=== PATIENT | female | born 1960 | race Two or more races ===

== ENCOUNTER 2023-09-21 10:42 | Inpatient (IN) | payer MEDICAID, OTHER ==
[~2023-09-21] VITALS: Ht 144.8 cm; Wt 58.0 kg
[2023-09-21] MEDS: SODIUM CHLORIDE 0.9% 500 ML IVB ONE (11:27)
[2023-09-21] MEDS: ONDANSETRON HCL 4 MG/2 ML VIAL IV ONE (11:30)
[2023-09-21] MEDS: MORPHINE SULFATE 4 MG/ML SYR/VIAL IV ONE (11:30)
[2023-09-21 11:31] LABS: Urine Bacteria None Seen /hpf (None Seen)
[2023-09-21 11:47] LABS: Basophils # (auto) 0.1 10 ^3/uL (0-0.2); Basophils % (auto) 1.2 % (0.0-2.0); Eosinophils # (auto) 0 10 ^3/uL (0-0.8); Eosinophils % (auto) 0.4 % (0.0-7.0); Hematocrit 40.7 % (36.0-46.0); Hemoglobin 13.7 g/dL (12.2-16.2); Lymphocytes # (auto) 1.8 10 ^3/uL (0.4-5.4); Lymphocytes % (auto) 35.1 % (10.0-50.0); Mean Corpuscular Hemoglobin 27.3 pg (28.0-32.0); Mean Corpuscular Hgb Conc. 33.7 g/dL (32.0-36.0); Monocytes # (auto) 0.3 10 ^3/uL (0-1.3); Monocytes % (auto) 6.8 % (0.0-12.0); Neutrophils # (auto) 2.9 10 ^3/uL (1.6-8.6); Neutrophils % (auto) 56.5 % (37.0-80.0); Red Blood Cells 5.03 10^6/uL (4.0-5.20); White Blood Cell 5.1 10^3/uL (4.4-10.8)
[2023-09-21 11:52] LABS: Urine Blood Negative /uL (Negative); Urine Clarity Clear (Clear); Urine Color Colorless (Yellow); Urine Protein, UAD Negative (Negative); Urine Specific Gravity 1.007 (1.001-1.035); Urine Urobilinogen Normal (Negative); Urine WBC 1 /hpf (0 - 5)
[2023-09-21 12:09] LABS: Alanine Aminotransferase 46 U/L (7-40); Albumin 4.6 g/dL (3.2-4.8); Alkaline Phosphatase 127 U/L (46-116); Anion Gap 6 (5-15); Aspartate Aminotransferase 24 U/L (13-40); BUN/Creatinine Ratio 15.6 (10.0-20.0); Bilirubin, Total 0.3 mg/dL (0.2-1.0); Blood Urea Nitrogen 10 mg/dL (9-23); Calcium 9.7 mg/dL (8.5-10.1); Carbon Dioxide 25 mmol/L (20-30); Chloride 109 mmol/L (98-107); Glucose 113 mg/dL (74-106); Potassium 3.9 mmol/L (3.5-5.1); Sodium 140 mmol/L (136-145); Total Protein 6.7 g/dL (5.7-8.2)
[2023-09-21 12:29] LABS: Lipase 83 U/L (12-53)
[2023-09-21] MEDS ORDERED: NITROGLYCERIN 0.4 MG SL TAB SL PRN (14:45)
[2023-09-21] MEDS ORDERED: ONDANSETRON HCL 4 MG/2 ML VIAL IV PRN (14:45)
[2023-09-21] MEDS ORDERED: DOCUSATE SOD 100 MG CAP PO PRN (14:45)
[2023-09-21] MEDS ORDERED: MORPHINE SULFATE INJ 2 MG/ml SYRG IV PRN ×2 (14:45)
[2023-09-21] MEDS ORDERED: DICYCLOMINE HCL 10 MG CAP PO PRN (16:00)
[2023-09-21 16:49] LABS: Erythrocyte Sedimentation Rate 5 mm/hr (0-20)
[2023-09-21 23:54] VITALS: PULSE 68; RESP 16; O2SAT 99
[2023-09-22] MEDS: PIPERACILLIN-TAZOB 3.375GM 100 ML IV SCH (00:02)
[2023-09-22] MEDS: HYDROcodone-ACET 5/325MG TAB PO PRN (00:03)
[2023-09-22] MEDS: SUCRALFATE 1 GM/10 ML ORAL SUSP PO SCH (00:03)
[2023-09-22 05:00] VITALS: BP 126/75; PULSE 68; RESP 18; TEMP 97.6; O2SAT 97
[2023-09-22 05:23] VITALS: BP 136/81; PULSE 64; RESP 18; TEMP 97.6; O2SAT 99
[2023-09-22] MEDS: ACETAMINOPHEN 325 MG TAB PO PRN (06:01)
[2023-09-22 06:32] LABS: Basophils # (auto) 0 10 ^3/uL (0-0.2); Basophils % (auto) 0.8 % (0.0-2.0); Eosinophils # (auto) 0 10 ^3/uL (0-0.8); Eosinophils % (auto) 0.7 % (0.0-7.0); Hematocrit 39.8 % (36.0-46.0); Hemoglobin 13.2 g/dL (12.2-16.2); Lymphocytes # (auto) 2.5 10 ^3/uL (0.4-5.4); Lymphocytes % (auto) 43.3 % (10.0-50.0); Mean Corpuscular Hemoglobin 27.1 pg (28.0-32.0); Mean Corpuscular Hgb Conc. 33.2 g/dL (32.0-36.0); Mean Corpuscular Volume 81.7 fL (80.0-100.0); Monocytes # (auto) 0.5 10 ^3/uL (0-1.3); Monocytes % (auto) 8.3 % (0.0-12.0); Neutrophils # (auto) 2.7 10 ^3/uL (1.6-8.6); Neutrophils % (auto) 46.9 % (37.0-80.0); Nucleated Red Blood Cells % 0.2 %; Red Blood Cells 4.88 10^6/uL (4.0-5.20); Red Cell Distribution Width 15.1 % (11.8-14.3); White Blood Cell 5.8 10^3/uL (4.4-10.8)
[2023-09-22 06:47] LABS: Alanine Aminotransferase 44 U/L (7-40); Alkaline Phosphatase 109 U/L (46-116); Anion Gap 5 (5-15); BUN/Creatinine Ratio 11.6 (10.0-20.0); Blood Urea Nitrogen 8 mg/dL (9-23); Calcium 9.5 mg/dL (8.5-10.1); Carbon Dioxide 27 mmol/L (20-30); Chloride 107 mmol/L (98-107); Glucose 79 mg/dL (74-106); Sodium 139 mmol/L (136-145)
[2023-09-22 06:48] LABS: Albumin 4.3 g/dL (3.2-4.8); Aspartate Aminotransferase 26 U/L (13-40); Bilirubin, Total 0.6 mg/dL (0.2-1.0); Total Protein 6.4 g/dL (5.7-8.2)
[2023-09-22 08:00] VITALS: PULSE 68; RESP 18; O2SAT 98
[2023-09-22 09:00] VITALS: BP 108/66; PULSE 68; RESP 18; TEMP 98.4; O2SAT 98
[2023-09-22] MEDS: PANTOPRAZOLE 40 MG/10 ML VIAL INJ IV SCH (09:39)
[2023-09-22 12:57] VITALS: BP 102/56; PULSE 66; RESP 16; TEMP 97.7; O2SAT 96
[2023-09-22] MEDS ORDERED: METR-344 PO (14:43)
[2023-09-22 17:33] VITALS: TEMP 36.5
== END 2023-09-22 18:15 | disposition home or self-care (01) | DRG 241 ==
LOC: ER 10:42 → OVERFLOW 14:50 → EAST 09-22 03:43
PROVIDERS: ADMIT Nurse Practitioner Family; ATTEND Nurse Practitioner Acute Care
DX: K29.70 Gastritis, unspecified, without bleeding (principal); E78.5 Hyperlipidemia, unspecified; K52.9 Noninfective gastroenteritis and colitis, unspecified; K62.89 Other specified diseases of anus and rectum
CPT/HCPCS: 36415; 74176; 80053; 81001; 83690; 85025; 85048; 85652; 86141; 96374; 96375; C9113; G0378; J2405; J2543